=== PATIENT | female | born 1990 | race African-American/Black ===

== ENCOUNTER 2016-06-26 03:05 | Emergency (ER) | payer OTHER ==
[2016-06-26 03:13] VITALS: TEMP 98.1; BMI 29.0
--- NOTE | 2016-06-26 04:08 | PDOC ---
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 ULLOA (NEUROLOGY). CALL TO SCHEDULE APPOINTMENT FOR FOLLOW UP. TYLENOL OR MOTRIN FOR PAIN RETURN IF ANY CONCERNS. YOU NEED TO FOLLOW UP EXPLAINED AND DISCUSSED WITH YOU, THIS IS IMPORTANT. Print Language: KHMER - Post Discharge Activity Work/School Note: Back to Work
--- NOTE | 2016-06-26 04:41 | PDOC ---
History of Present Illness - General Chief Complaint: Asthma Stated Complaint: DIZZINESS/FAINTED Time Seen by Provider: 06/26/16 03:22 History Source: Patient Exam Limitations: No Limitations - History of Present Illness Initial Comments: 06/26/16 04:31 25yo Female presents to ED via EMS c/o tooth pain that caused her asthma to " act up," then causing her to pass out. Patient reports history of frequent syncopal episodes. She reports having a recent CT-Scan of head due to passing out. Patient reported she was never told to follow up with a specialist. LNMP: May 31. She denies h/a, neck pain, CP, back pain, n/v/d, fever, cough, congestion, rash, confusion, disorientation, or any other complaints at this time. Timing/Duration: resolved prior to arrival Severity: mild Modifying Factors: improves with: rest Associated Symptoms: denies: denies symptoms, chest pain, cough, diaphoresis, fever/chills, headaches, loss of appetite, malaise, nausea/vomiting, rash, seizure, shortness of breath, syncope, weakness, other Past History - Travel Traveled outside of the country in the last 30 days: No Close contact w/someone who was outside of country & ill: No - Past Medical History Allergies/Adverse Reactions: Allergies Allergy/AdvReac Type Severity Reaction Status Date / Time No Known Allergies Allergy Verified 06/07/16 22:40 Home Medications: Ambulatory Orders Ibuprofen 800 mg PO TID #42 tablet 06/08/16 Pseudoephedrine HCl [Sudafed 24-Hour] 240 mg PO DAILY #14 tab.er.24h 06/08/16 Asthma: Yes - Immunization History Immunization Up to Date: Yes - Psycho/Social/Smoking Cessation Hx Anxiety: No Suicidal Ideation: No Smoking Status: No Smoking History: Never smoked Have you smoked in the past 12 months: No Number of Cigarettes Smoked Daily: 0 Cigars Per Day: 0 Information on smoking cessation initiated: No Hx Alcohol Use: No Drug/Substance Use Hx: No Review of Systems - Review of Systems Able to Perform ROS?: Yes Is the patient limited Polish proficient: No Constitutional: No: Chills, Fever HEENTM: No: Eye Pain, Blurred Vision, Double Vision *Physical Exam - Vital Signs Last Vital Signs Temp Pulse Resp BP Pulse Ox 98.1 F 88 20 129/74 100 06/26/16 03:11 06/26/16 03:11 06/26/16 03:11 06/26/16 03:11 06/26/16 03:11 ED Treatment Course - RADIOLOGY Radiology Studies Ordered: Category Date Time Status CHEST PA & LAT [RAD] Stat Radiology 06/26/16 03:26 Ordered Medical Decision Making - Medical Decision Making 06/26/16 06:15 PATIENT HAS HAD NUMEROUS CT SCAN OF HEAD/BRAIN DUE TO SYNCOPE. PATIENT NEUROLOGICALLY INTACT. NO N/V/D, CONFUSION, ATAXIA, DISORIENTATION. URINE PREG NEG. EKG WNL. WILL D/C PATIENT HOME W/ REFERRAL TO NEUROLOGY. PATIENT STATES NO ONE ASKED HER TO FOLLOW UP WITH ANY SPECIALIST. *DC/Admit/Observation/Transfer Diagnosis at time of Disposition: Syncope Qualifiers: Syncope type: unspecified Qualified Code(s): R55 - Syncope and collapse - Discharge Dispostion Disposition: HOME Condition at time of disposition: Good Admit: No - Referrals Referrals: Bereket Smith MD [Primary Care Provider] - Casandra Ulloa MD [Staff Physician] - - Patient Instructions Printed Discharge Instructions: DI for Syncope in Adults (Fainting) Additional Instructions: FOLLOW UP WITH DR. ULLOA (NEUROLOGY). CALL TO SCHEDULE APPOINTMENT FOR FOLLOW UP. TYLENOL OR MOTRIN FOR PAIN RETURN IF ANY CONCERNS. YOU NEED TO FOLLOW UP EXPLAINED AND DISCUSSED WITH YOU, THIS IS IMPORTANT. Print Language: ANDORRAN - Post Discharge Activity Work/School Note: Back to Work
[2016-06-26 04:53] LABS: URINE APPEARANCE SLCLOUDY; URINE BILIRUBIN NEGATIVE (NEGATIVE); URINE COLOR LTYELLOW; URINE GLUCOSE (UA) NEGATIVE (NEGATIVE); URINE KETONE NEGATIVE (NEGATIVE); URINE NITRITE NEGATIVE (NEGATIVE); URINE PROTEIN NEGATIVE (NEGATIVE); URINE UROBILINOGEN NEGATIVE E.U./dl (0.2-1.0)
[2016-06-26 04:56] LABS: URINE BLOOD 2+ (NEGATIVE); URINE LEUK ESTERASE TRACE (NEGATIVE)
[2016-06-26 05:04] LABS: URINE MUCUS RARE; URINE RBC 1 /hpf (0-3); URINE WBC 3 /hpf (3-5)
[2016-06-26 06:30] VITALS: BP 115/78; PULSE 78
--- NOTE | 2016-06-26 12:21 | EKG ---
Test Reason : Blood Pressure : / mmHG Vent. Rate : 080 BPM Atrial Rate : 080 BPM P-R Int : 156 ms QRS Dur : 086 ms QT Int : 374 ms P-R-T Axes : 047 082 049 degrees QTc Int : 431 ms NORMAL SINUS RHYTHM WITH SINUS ARRHYTHMIA CANNOT RULE OUT ANTERIOR INFARCT , AGE UNDETERMINED ABNORMAL ECG NO PREVIOUS ECGS AVAILABLE Confirmed by SHANA JEONG MD ([id number]) on 06/26/2016 12:21:03 PM Referred By: Confirmed By:SHANA JEONG MD
== END 2016-06-26 06:30 | disposition home or self-care (01) ==
LOC: JER 03:05
DX: R55 Syncope and collapse (principal); J45.909 Unspecified asthma, uncomplicated
CPT/HCPCS: 71020-TC; 81003; 81015; 84703; 93005; 93010; 99282-25

== ENCOUNTER 2019-07-31 13:31 | Emergency (ER) | payer OTHER ==
--- NOTE | 2019-07-31 13:53 | PDOC ---
Rapid Medical Evaluation Time Seen by Provider: 07/31/19 13:51 Medical Evaluation: Allergies Allergy/AdvReac Type Severity Reaction Status Date / Time No Known Allergies Allergy Verified 06/07/16 22:40 07/31/19 13:51 This patient had rapid medical evaluation in triage cc:pelvic pain today HPI: Patient , 35 weeks with pelvic pain no water break PE: NAD abdomen bleeding or water leakage Ext: + pedal edema, left>right Orders: This patient will proceed to labor and delivery for further evaluation and treatment 07/31/19 13:54 07/31/19 20:35 Discharge Disposition - Diagnosis Pain during labor - Referrals - Patient Instructions - Post Discharge Activity
[2019-07-31 14:14] VITALS: BMI 35.2
[2019-07-31 14:50] VITALS: TEMP 98.6
[2019-07-31] MEDS ORDERED: SODIUM CHLORIDE 500 ML IV STA (15:12)
[2019-07-31] MEDS ORDERED: NIFEdipine 10 MG CAPSULE (FP) PO ONE ×2 (15:30→17:00)
--- NOTE | 2019-07-31 16:02 | PN ---
Ante-Partal Exam - Subjective Subjective: Patient presents with complaint of back and pelvic cramping. She reports increased strenuous activity and decreased PO fluid intake. Partial records acquired as she is an external OBGYN provider's patient. Patient denies VB, LOF, STAHL, vision changes, CP, leg swelling. Patient reports no complications with this except for CHTN for the last 2 years, not on meds. Vital Signs: Vital Signs Temperature 98.6 F 07/31/19 14:20 Pulse Rate 77 07/31/19 14:30 Respiratory Rate 20 07/31/19 14:30 Blood Pressure 144/84 07/31/19 14:30 O2 Sat by Pulse Oximetry (%) 100 07/31/19 13:51 Bleeding: No Headache: No Visual changes: No Right upper quadrant pain: No - Contractions Contractions: Yes Regularity: Regular Intensity: Mild Monitor Mode: External - Exam during Labor Heart Rate: 150 Variability: Moderate Category: I Monitor Accelerations: Present Monitor Decelerations: None Exam: Vaginal Dilatation (cm): 0 Effacement (%): 0 Amniotic Membrane Status: Intact Station: -3 (posterior) Remarks: Abd: gravid, soft, n/d, n/t, no RUQ tenderness on palpation, no rebound, no guarding Ext: trace edema, no clonus, 2+DTR, no CT - Assessment/Plan Assessment/Plan: 28 y/o @ 35.6wks by LMP of 11/22/18 consistent with first trimester sono ( 11.2wks) presenting for rule out PTL. complicated by CHTN and BP in mild range and patient is asymptomatic. H/O asthma and trichomonas infection. FHT is reactive and patient is not in active PTL. -Continuous monitoring -PEC labs -MFM sono -Monitor BP -IV bolus -Nifedipine PO
[2019-07-31] MEDS ORDERED: NIFEdipine 10 MG CAPSULE (FP) ONE (16:40)
[2019-07-31 17:58] LABS: COCAINE, UR NEGATIVE ng/ml (CUTOFF=300); METHADONE, UR NEGATIVE ng/ml (CUTOFF=300); OPIATES, URI NEGATIVE ng/ml (CUTOFF=300); PHENCYCLIDINE,URINE NEGATIVE ng/ml (CUTOFF=25); URINE AMPHETAMINES NEGATIVE ng/ml (CUTOFF=500); URINE BARBITURATES NEGATIVE ng/ml (CUTOFF=200); URINE BENZODIAZEPINES NEGATIVE ng/ml (CUTOFF=200)
[2019-07-31 17:59] LABS: EPI CELLS 6.7 /HPF (0-5/HPF); HYALINE CASTS 11 /lpf (0-8); URINE APPEARANCE CLEAR; URINE BACTERIA 257.2 /hpf (NEGATIVE); URINE BILIRUBIN NEGATIVE (NEGATIVE); URINE COLOR YELLOW; URINE GLUCOSE (UA) NEGATIVE (NEGATIVE); URINE KETONE 1+ (NEGATIVE); URINE LEUK ESTERASE 2+ (NEGATIVE); URINE NITRITE NEGATIVE (NEGATIVE); URINE PROTEIN NEGATIVE (NEGATIVE); URINE RBC 1 /hpf (0-4); URINE WBC 43 /hpf (0-5)
[2019-07-31 18:55] LABS: BASO % 0.3 % (0-2.0); EOS % 0.4 % (0-4.5); HEMATOCRIT 37.7 % (32.4-45.2); HEMOGLOBIN 12.7 GM/dL (10.7-15.3); LYMPH % 16.8 % (8-40); MCH 30.7 pg (25.7-33.7); MCHC 33.8 g/dl (32.0-36.0); MEAN CELL VOLUME 90.9 fl (80-96); MEAN PLT VOLUME 9.3 fl (7.5-11.1); MONO % 6.9 % (3.8-10.2); NEUT % 75.6 % (42.8-82.8); PLATELET COUNT 222 K/MM3 (134-434); RBC 4.14 M/mm3 (3.60-5.2); RDW 15.5 % (11.6-15.6); WHITE BLOOD COUNT 9.3 K/mm3 (4.0-10.0)
[2019-07-31 19:43] LABS: ALBUMIN 2.4 g/dl (3.4-5.0); BILIRUBIN,TOTAL 0.3 mg/dL (0.2-1); BLOOD UREA NITROGEN 5.9 mg/dL (7-18); CALCIUM 8.5 mg/dL (8.5-10.1); CREATININE 0.6 mg/dL (0.55-1.3); POTASSIUM 3.9 mmol/L (3.5-5.1); TOT PROT 6.2 g/dl (6.4-8.2); URIC ACID 5.7 mg/dL (2.6-7.2)
[2019-07-31 20:36] VITALS: BP 126/74; PULSE 71
--- NOTE | 2019-07-31 21:43 | PN ---
Ante-Partal Exam - Subjective Subjective: Patient reports contractions subsided. Patient was counseled regarding EFW of 5 % and instructed to follow up tomorrow with her OBGYN provider. Copy of report provided. Vital Signs: Vital Signs Temperature 98.6 F 07/31/19 14:20 Pulse Rate 71 07/31/19 20:00 Respiratory Rate 18 07/31/19 20:00 Blood Pressure 126/74 07/31/19 20:00 O2 Sat by Pulse Oximetry (%) 100 07/31/19 13:51 Bleeding: No Headache: No Visual changes: No Right upper quadrant pain: No - Contractions Contractions: No Regularity: Irritability Intensity: Unaware Monitor Mode: External - Exam during Labor Heart Rate: 140 Variability: Moderate Category: I Monitor Accelerations: Present Monitor Decelerations: None Exam: Vaginal Dilatation (cm): 0 Effacement (%): 0 Station: -3 Remarks: Abd: soft, n/d, gravid, no RUQ tenderness, no incisional tenderness. Labs: reviewed - Assessment/Plan Assessment/Plan: 28 y/o @ 35.6wks, prior CD, limited summary as she is an external patient, IUGR at 5% with reassuring testing and normal UAD. Patient is not in active PTL. PEC labs reviewed and WNL. CHTN and BP in normal to mild range. Patient was counseled regarding IUGR in the back ground of [place]. Indication for early term delivery explained and all questions answered. Full and extensive antepartum/PTL/HTN precautions discussed. Patient expressed understanding and reports follow up with OBGYN provider tomorrow morning. -D/C home -F/U as instructed -Copy of official sono given to the patient -Health Center info provided -Return PRN
[2019-07-31] MEDS ORDERED: LABETALOL HCL 200 MG TABLET (FP) PO SCH (22:00)
== END 2019-07-31 21:50 | disposition home or self-care (01) ==
LOC: JER 13:31
DX: O26.893 Other specified pregnancy related conditions, third trimester (principal); R10.2 Pelvic and perineal pain; Z3A.35 35 weeks gestation of pregnancy
CPT/HCPCS: 36415; 80053; 80307; 81003; 82570; 83615; 84156; 84550; 85025; 99283-25

== ENCOUNTER 2020-01-20 10:16 | Emergency (ER) | payer OTHER ==
[2020-01-20 10:41] VITALS: BP 136/88; TEMP 98.2; BMI 35.2
[2020-01-20] MEDS ORDERED: IBUPROFEN 600 MG TABLET (FP) PO ONE ×2 (10:47→11:08)
[2020-01-20] MEDS ORDERED: IPRATROPIUM BR 0.02% 0.5 MG/2.5 ML VIAL.NEB. NEB ONE ×2 (10:47→11:07)
--- NOTE | 2020-01-20 10:57 | PDOC ---
History of Present Illness - General History Source: Patient Exam Limitations: No Limitations - History of Present Illness Initial Comments: 01/20/20 10:47 29-year-old history of hypertension, asthma, denies history of intubation presents complaining of chest tightness since 4 AM today. Describes pain as tightness when inhaling and exhaling. Reports symptoms are similar to her past asthma exacerbations. Denies recent illness, shortness of breath, fever, chills, cough, abdominal pain, nausea, vomiting, diarrhea, recent sick contacts, recent travel, urinary complaints. Patient smokes marijuana daily. Denies illicit drug use. Unable to find her albuterol and Atrovent MDI at home. ROS: as above PE: GENERAL: well-appearing, NAD HEAD: NCAT EYES: Pupils equal, round and reactive to light, sclera anicteric, conjunctiva clear ENT: pharynx: no erythema, no exudate, uvula midline NECK: supple CHEST: Tenderness to palpation over midsternal area RESP: clear, no w/r/r CARDIO: rrr, no m/g/r ABD: +BS, soft, nontender, non distended BACK: no midline spinal ttp, no CVAT EXTREMITIES: Normal range of motion, no edema NEUROLOGICAL: Normal speech, normal gait SKIN: Warm, Dry 01/20/20 11:41 Is this a multiple visit Asthma Patient?: No <Leah Anguiano - Last Filed: 01/20/20 12:15> <Philippe Hartmann - Last Filed: 01/20/20 17:51> - General Chief Complaint: Chest Pain Stated Complaint: CHEST PAIN Time Seen by Provider: 01/20/20 10:40 Past History - Medical History Asthma: Yes COPD: No - Immunization History Immunization Up to Date: Yes - Psycho-Social/Smoking History Smoking Status: No Smoking History: Never smoked Have you smoked in the past 12 months: No Number of Cigarettes Smoked Daily: 0 Cigars Per Day: 0 - Substance Abuse Hx (Audit-C & DAST Scrn) How often the patient has a drink containing alcohol: Never Score: In Men: 4 or > Positive; In Women: 3 or > Positive: 0 Screen Result (Pos requires Nsg. Audit-10AR): Negative In the last yr the pt used illegal drug/Rx for NonMed reason: No Score: Yes response is considered Positive: 0 Screen Result (Positive result requires Nsg. DAST-10): Negative <Leah Anguiano - Last Filed: 01/20/20 12:15> <Philippe Hartmann - Last Filed: 01/20/20 17:51> - Medical History Allergies/Adverse Reactions: Allergies Allergy/AdvReac Type Severity Reaction Status Date / Time No Known Allergies Allergy Verified 10/24/19 04:52 Home Medications: Ambulatory Orders predniSONE [Deltasone -] 40 mg PO DAILY #8 tablet 09/11/19 Fluticasone Propionate [Flovent Hfa] 110 mcg IH BID #1 inh 10/24/19 predniSONE [Deltasone -] 40 mg PO DAILY #8 tablet 10/24/19 Albuterol Sulfate Inhaler - [Ventolin HFA Inhaler -] 2 inh PO Q6H #1 inh 01/20/20 Ipratropium [place] [Atrovent Hfa] 12.9 gm IH BID 30 Days #1 hfa.aer.ad 01/20/20 Prednisone [Prednisone 50 MG TABLETS] 50 mg PO ONCE #4 tablet 01/20/20 *Physical Exam - Vital Signs Last Vital Signs Temp Pulse Resp BP Pulse Ox 98.2 F 64 16 136/88 98 01/20/20 10:30 01/20/20 10:30 01/20/20 10:30 01/20/20 10:30 01/20/20 10:30 <Leah Anguiano - Last Filed: 01/20/20 12:15> - Vital Signs Last Vital Signs Temp Pulse Resp BP Pulse Ox 98.2 F 67 19 136/88 99 01/20/20 10:30 01/20/20 11:36 01/20/20 11:36 01/20/20 10:30 01/20/20 11:36 <Philippe Hartmann - Last Filed: 01/20/20 17:51> ED Treatment Course - Medications Given in the ED: ED Medications Discontinued Medications Generic Name Dose Route Start Last Admin Trade Name Freq PRN Reason Stop Dose Admin Albuterol Sulfate 1 amp 01/20/20 11:00 01/20/20 11:43 Ventolin 0.083% Nebulizer Soln - NEB 01/20/20 11:31 Not Given Q15M BRAYAN Ibuprofen 600 mg 01/20/20 10:47 01/20/20 11:14 Motrin - PO 01/20/20 10:48 600 mg ONCE ONE Administration Ipratropium [place] 1 amp 01/20/20 10:47 01/20/20 11:14 Atrovent 0.02% Nebulizer - NEB 01/20/20 10:48 1 amp ONCE ONE Administration Prednisone 60 mg 01/20/20 11:40 01/20/20 11:43 Deltasone - PO 01/20/20 11:41 60 mg ONCE ONE Administration <Philippe Hartmann - Last Filed: 01/20/20 17:51> Medical Decision Making - Medical Decision Making 01/20/20 10:57 29-year-old history of asthma, denies history of intubation presents complaining of chest tightness since 4 AM today. Describes pain as tightness when inhaling and exhaling. Reports symptoms are similar to her past asthma exacerbations. Denies recent illness, shortness of breath, fever, chills, cough, abdominal pain, nausea, vomiting, diarrhea, recent sick contacts, recent travel, urinary complaints. Patient smokes marijuana daily. Denies illicit drug use. Unable to find her albuterol and Atrovent MDI at home. Patient speaking full sentences Will give albuterol and Atrovent nebulizer treatment Ibuprofen 600 mg p.o. Reassess 01/20/20 11:41 Patient completed extremely half of his nebulizer treatments and stopped because "it is making my chest pain worse ". Vital signs repeated, O2 sat 99% HR 67 ecg: HR 64, nsr, no st or tw changes Advised patient to have a chest x-ray however she declines, states "my chest x- ray is always normal ". Patient continues to speak full sentences, lungs clear Prednisone 60 mg po given 01/20/20 12:15 Patient feels better Lungs clear Return precautions discussed Prescription sent to pharmacy for prednisone, albuterol and Atrovent MDI 01/20/20 12:18 <Leah Anguiano - Last Filed: 01/20/20 12:15> - Medical Decision Making 01/20/20 17:51 I reviewed the case of the mid-level practitioner and was available for consultation while in the emergency department <Philippe Hartmann - Last Filed: 01/20/20 17:51> Discharge - Discharge Information Problems reviewed: Yes - Admission No <Leah Anguiano - Last Filed: 01/20/20 12:15> <Philippe Hartmann - Last Filed: 01/20/20 17:51> - Discharge Information Clinical Impression/Diagnosis: Chest tightness Condition: Stable Disposition: HOME - Additional Discharge Information Prescriptions: Ipratropium [place] [Atrovent Hfa] 12.9 gm IH BID 30 Days #1 hfa.aer.ad Prednisone [Prednisone 50 MG TABLETS] 50 mg PO ONCE #4 tablet Albuterol Sulfate Inhaler - [Ventolin HFA Inhaler -] 2 inh PO Q6H #1 inh - Follow up/Referral Referrals: Anastacio German [Primary Care Provider] - - Patient Discharge Instructions Additional Instructions: Use albuterol inhaler 2 puffs every 6 hours as needed Use Flovent inhaler 1 puff twice a day Take prednisone 50 mg 1 tablet daily x 4 days Follow-up with your doctor within 1 week return to the emergency department if worsening chest pain, shortness of breath, fever, chills, cough, back pain, abdominal pain or any concerning symptoms - Post Discharge Activity
[2020-01-20] MEDS ORDERED: ALBUTEROL SO4 0.083% IH SOL 2.5 MG/3 ML VIAL.NEB. NEB ONE ×2 (11:07→11:28)
[2020-01-20] MEDS: ALBUTEROL SO4 0.083% IH SOL 2.5 MG/3 ML VIAL.NEB. NEB SCH ×2 (11:14→11:43)
[2020-01-20 11:36] VITALS: PULSE 67
[2020-01-20] MEDS ORDERED: predniSONE 20 MG TABLET (UD) PO ONE (11:40)
[2020-01-20] MEDS ORDERED: predniSONE 20 MG TABLET (UD) ONE (11:41)
--- NOTE | 2020-01-24 13:01 | EKG ---
Test Reason : Blood Pressure : / mmHG Vent. Rate : 064 BPM Atrial Rate : 064 BPM P-R Int : 154 ms QRS Dur : 088 ms QT Int : 418 ms P-R-T Axes : 005 080 050 degrees QTc Int : 431 ms POOR DATA QUALITY, INTERPRETATION MAY BE ADVERSELY AFFECTED NORMAL SINUS RHYTHM WITH SINUS ARRHYTHMIA NORMAL ECG WHEN COMPARED WITH ECG OF 26-JUN-2016 03:50, NO SIGNIFICANT CHANGE WAS FOUND Confirmed by MD PAULINE, AYO ([id number]) on 01/24/2020 1:00:58 PM Referred By: Confirmed By:AYO CARPENTER MD
== END 2020-01-20 12:23 | disposition home or self-care (01) ==
LOC: JER 10:16 → JERFT 10:16
PROC: 3E0F7GC Introduction of Other Therapeutic Substance into Respiratory Tract, Via Natural or Artificial Opening (ICD-10-PCS; principal; 2020-01-20)
DX: R07.89 Other chest pain (principal)
CPT/HCPCS: 93005; 93010; 99284-25

== ENCOUNTER 2020-02-20 23:55 | Emergency (ER) | payer OTHER ==
[2020-02-21 00:19] VITALS: BMI 32.6
--- NOTE | 2020-02-21 01:13 | PDOC ---
History of Present Illness - General Chief Complaint: Shortness of Breath Stated Complaint: DIFFICULTY BREATHING Time Seen by Provider: 02/21/20 00:48 History Source: Patient, Old Records Exam Limitations: No Limitations - History of Present Illness Initial Comments: 02/21/20 01:12 Janeen Kaplan is a 29F with PMH asthma presenting with asthma exacerbation. Patient began having chest tightness and SOB beginning a few hours [employer], used albuterol nebs one hour ago with limited relief of symptoms. Has had exacerbation requiring medical care once every ~2 months, last one months ago, says she is highly responsive to prednisone and gets better soon after. Has never been hospitalized or intubated for asthma. Denies any fever, chills, nausea, vomiting, abd pain, ALMONTE, chest pain, dizziness, STAHL, urinary symptoms. No known covid-19 exposures. NKDA. No PSH. Denies tobacco/alcohol/drug use. Past History - Medical History Allergies/Adverse Reactions: Allergies Allergy/AdvReac Type Severity Reaction Status Date / Time No Known Allergies Allergy Verified 02/21/20 00:19 Home Medications: Ambulatory Orders predniSONE [Deltasone -] 40 mg PO DAILY #8 tablet 09/11/19 Fluticasone Propionate [Flovent Hfa] 110 mcg IH BID #1 inh 10/24/19 predniSONE [Deltasone -] 40 mg PO DAILY #8 tablet 10/24/19 Albuterol Sulfate Inhaler - [Ventolin HFA Inhaler -] 2 inh PO Q6H #1 inh 01/20/20 Ipratropium [place] [Atrovent Hfa] 12.9 gm IH BID 30 Days #1 hfa.aer.ad 01/20/20 Prednisone [Prednisone 50 MG TABLETS] 50 mg PO ONCE #4 tablet 01/20/20 Albuterol 2.5/Ipratropium 0.5 [Duoneb -] 1 neb NEB Q4H PRN #30 vial 02/21/20 Albuterol Sulfate Inhaler - [Ventolin Hfa Inhaler -] 1 - 2 inh PO Q4H #1 inhaler 02/21/20 Methylprednisolone [Medrol Dose Wan] 4 mg PO ASDIR #21 tablet 02/21/20 Asthma: Yes COPD: No - Reproductive History Is Patient Now?: No - Immunization History Immunization Up to Date: Yes - Psycho-Social/Smoking History Smoking Status: No Smoking History: Never smoked Have you smoked in the past 12 months: No Number of Cigarettes Smoked Daily: 0 Cigars Per Day: 0 - Substance Abuse Hx (Audit-C & DAST Scrn) How often the patient has a drink containing alcohol: Never Score: In Men: 4 or > Positive; In Women: 3 or > Positive: 0 Screen Result (Pos requires Nsg. Audit-10AR): Negative In the last yr the pt used illegal drug/Rx for NonMed reason: No Score: Yes response is considered Positive: 0 Screen Result (Positive result requires Nsg. DAST-10): Negative Review of Systems - Review of Systems Able to Perform ROS?: Yes Constitutional: No: Symptoms Reported HEENTM: No: Symptoms Reported Respiratory: Yes: Shortness of Breath, Wheezing. No: Cough, Productive cough Cardiac (ROS): Yes: Chest Tightness. No: Chest Pain, Edema, Irregular Heart Rate, Lightheadedness, Palpitations, Syncope ABD/GI: No: Symptoms Reported : No: Symptoms Reported Musculoskeletal: No: Symptoms Reported Integumentary: No: Symptoms Reported Neurological: No: Symptoms reported Endocrine: No: Symptoms Reported Hematologic/Lymphatic: No: Symptoms Reported All Other Systems: Reviewed and Negative *Physical Exam - Vital Signs Last Vital Signs Temp Pulse Resp BP Pulse Ox 98.2 F 60 20 121/82 100 02/21/20 00:02/21/20 00:02/21/20 00:02/21/20 00:02/21/20 00:17 - Physical Exam General Appearance: Yes: Nourished, Appropriately Dressed, Obese, Other (resting comfortably in bed, in NAD, watching videos on cell phone). No: Apparent Distress HEENT: positive: EOMI, JAGDISH, Normal ENT Inspection, Normal Voice, Symmetrical, Pharynx Normal, Hearing Grossly Normal. negative: Scleral Icterus (R), Scleral Icterus (L), Pharyngeal Erythema, Tonsillar Exudate, Tonsillar Erythema, Nasal Congestion, Rhinorrhea Neck: positive: Trachea midline, Normal Thyroid, Supple. negative: Tender, Decreased range of motion, Lymphadenopathy (R) Respiratory/Chest: positive: Lungs Clear, Normal Breath Sounds. negative: Chest Tender, Respiratory Distress, Accessory Muscle Use, Labored Respiration, Rapid RR, Decreased Breath Sounds, Crackles, Rales, Rhonchi, Stridor, Wheezing Cardiovascular: positive: Regular Rhythm, Regular Rate. negative: Murmur, Tachycardia Gastrointestinal/Abdominal: positive: Normal Bowel Sounds, Flat, Soft. negative: Tender, Pulsatile Mass, Guarding, Rebound Musculoskeletal: positive: Normal Inspection. negative: CVA Tenderness, Decreased Range of Motion, Vertebral Tenderness Extremity: positive: Normal Range of Motion, Pelvis Stable. negative: Tender, Pedal Edema, Swelling, Calf Tenderness Integumentary: positive: Normal Color, Dry, Warm Neurologic: positive: Fully Oriented, Alert, Normal Mood/Affect, Normal Response Medical Decision Making - Medical Decision Making 02/21/20 01:12 PMH asthma, never intubated or hospitalized, has chest tightness feels like prior asthma, used albuterol neb [employer] did not help, has had exacerbation in the past responsive to prednisone. VSS. No wheezing or decreased breath sounds. Low suspicion of PNA or other respiratory pathology other than asthma. Giving 125 solu-medrol and MDI albuterol, will re-assess after. 02/21/20 03:44 Patient re-evaluated, breathing is better, resting comfortably in bed. Sending home with Medrol dose pack, Duoneb amp refills, and a new Ventolin MDI to pharmacy. Discussed medication usage and to return of SOB worsens. Discharge - Discharge Information Problems reviewed: Yes Clinical Impression/Diagnosis: Asthma exacerbation Qualifiers: Asthma severity: mild Asthma persistence: intermittent Qualified Code(s): J45.21 - Mild intermittent asthma with (acute) exacerbation Condition: Improved Disposition: HOME - Admission No - Additional Discharge Information Prescriptions: Albuterol 2.5/Ipratropium 0.5 [Duoneb -] 1 neb NEB Q4H PRN #30 vial PRN Reason: Asthma Methylprednisolone [Medrol Dose Wan] 4 mg PO ASDIR #21 tablet Albuterol Sulfate Inhaler - [Ventolin Hfa Inhaler -] 1 - 2 inh PO Q4H #1 inhaler - Follow up/Referral Referrals: Katt Felder MD [Primary Care Provider] - - Patient Discharge Instructions Patient Printed Discharge Instructions: DI for Asthma -- Adult Additional Instructions: Today you were evaluated for asthma. We gave you steroids and some albuterol and you felt better. We are sending you home with a Medrol dose pack for steroids, please take it as prescribed. We have also sent you refills for your nebulizer and inhaler. At home, take your medications as prescribed. See your regular doctor in the next week for further care. If you experience fever, shortness of breath, chest pain, or any other new or concerning symptoms, please return to the emergency room. - Post Discharge Activity
[2020-02-21] MEDS ORDERED: ALBUTEROL SO4 HFA INHALER IH ONE ×2 (01:18→01:21)
[2020-02-21] MEDS ORDERED: methylPREDNISolone NA SUCC 125 MG/2 ML VIAL IVPB ONE (01:18)
[2020-02-21] MEDS ORDERED: methylPREDNISolone NA SUCC 125 MG/2 ML VIAL ONE (01:21)
--- NOTE | 2020-02-21 01:43 | PDOC ---
Documentation entered by Nasreen Flores SCRIBE, acting as scribe for Ana Fall MD. Ana Fall MD: This documentation has been prepared by the Lilian ness Sydney, SCRIBE, under my direction and personally reviewed by me in its entirety. I confirm that the documentation accurately reflects all work, treatment, procedures, and medical decision making performed by me. Attending Attestation - Resident Resident Name: Sawyer Burch - ED Attending Attestation I have performed the following: I have examined & evaluated the patient, The case was reviewed & discussed with the resident, I agree w/resident's findings & plan, Exceptions are as noted - HPI HPI: 02/21/20 01:18 this 29 yo female p/w chest tightness that she states is h er asthma Patient is a 29 year old female with a significant past medical history of asthma who presents to the ED with shortness of breath and chest tightness secondary to asthma exacerbation. Patient endorses a similar episode one month ago, for which she was seen in the ER. She reports administering her albuterol nebulizer with some relief of her symptoms. Denies fever, chills, headache, nausea, vomiting, diarrhea, or urinary changes. Allergies: NKDA PCP: Dr. Felder 02/26/20 17:24 02/26/20 17:25 - Physicial Exam PE: 02/26/20 17:25 this 29 yo female p/w chest tightness that she states is her asthma head ncat neck supple lungs cta b/l cvs [id number] abdomen nontender skin warm and dry no cva tenderness extremities no edema no clubbing. no erythema - Medical Decision Making 02/21/20 01:43 plan steroids,resp tx and reassess Discharge - Discharge Information Problems reviewed: Yes Clinical Impression/Diagnosis: Asthma exacerbation Qualifiers: Asthma severity: mild Asthma persistence: intermittent Qualified Code(s): J45.21 - Mild intermittent asthma with (acute) exacerbation Condition: Improved Disposition: HOME - Admission No - Additional Discharge Information Prescriptions: Albuterol 2.5/Ipratropium 0.5 [Duoneb -] 1 neb NEB Q4H PRN #30 vial PRN Reason: Asthma Methylprednisolone [Medrol Dose Wan] 4 mg PO ASDIR #21 tablet Albuterol Sulfate Inhaler - [Ventolin Hfa Inhaler -] 1 - 2 inh PO Q4H #1 inhaler - Follow up/Referral Referrals: Katt Felder MD [Primary Care Provider] - - Patient Discharge Instructions Patient Printed Discharge Instructions: DI for Asthma -- Adult Additional Instructions: Today you were evaluated for asthma. We gave you steroids and some albuterol and you felt better. We are sending you home with a Medrol dose pack for steroids, please take it as prescribed. We have also sent you refills for your nebulizer and inhaler. At home, take your medications as prescribed. See your regular doctor in the next week for further care. If you experience fever, shortness of breath, chest pain, or any other new or concerning symptoms, please return to the emergency room. - Post Discharge Activity
[2020-02-21 05:18] VITALS: BP 132/76; PULSE 63; TEMP 97.7
== END 2020-02-21 05:22 | disposition home or self-care (01) ==
LOC: JER 23:55
PROC: 3E0F7GC Introduction of Other Therapeutic Substance into Respiratory Tract, Via Natural or Artificial Opening (ICD-10-PCS; principal; 2020-02-21)
PROC: 3E033NZ Introduction of Analgesics, Hypnotics, Sedatives into Peripheral Vein, Percutaneous Approach (ICD-10-PCS; 2020-02-21)
DX: J45.21 Mild intermittent asthma with (acute) exacerbation (principal)
CPT/HCPCS: 99284-25